=== PATIENT | female | born 1935 | race Caucasian/White ===

== ENCOUNTER 2022-12-29 10:31 | Emergency (ER) | payer BC, MEDICARE ==
[~2022-12-29] VITALS: Ht 165.1 cm; Wt 70.0 kg
[~2022-12-29 10:31] MED LIST: [UNRECOGNIZED DRUG - OTHER]
[2022-12-29 10:33] VITALS: TEMP 98; O2SAT 96
[2022-12-29 11:36] LABS: BASOPHILS % 0.8 % (0.0-2.0); EOSINOPHILS % 3.3 % (0.0-5.0); HEMATOCRIT. 30.9 % (36.0-48.0); HEMOGLOBIN. 10.5 g/dL (12.0-16.0); LYMPHOCYTES % 16.8 % (20.0-50.0); MEAN CORPUSCULAR HEMOGLOBIN 31.1 pg (28.0-32.0); MEAN CORPUSCULAR VOLUME 91.6 fL (81.0-99.0); MEAN PLATELET VOLUME 7.8 fl (7.4-10.4); NEUTROPHILS % 70.1 % (40.0-76.0); PLATELET 257 x1000/uL (130-400); RED BLOOD CELL COUNT 3.37 mill/uL (4.2-5.4); RED CELL DISTRIBUTION WIDTH 15.1 % (11.6-14.6); WHITE BLOOD COUNT 8.8 x1000/uL (4.5-11.0)
[2022-12-29 12:17] LABS: CHLORIDE 110 mEq/L (98-107); INDEX HEMOLYSI 3 (1-3); INDEX ICTERIC 1 (1-4); INDEX LIPEMIC 1 (1-3); POTASSIUM 3.8 mEq/L (3.5-5.1); SODIUM 137 mEq/L (136-145)
[2022-12-29 12:26] LABS: ALANINE AMINOTRANSFERASE 20 IU/L (13-61); ASPARTATE AMINOTRANSFERASE 23 IU/L (15-37); BILIRUBIN TOTAL 0.5 mg/dL (0.1-1.0); CARBON DIOXIDE 24 mEq/L (21-32); CREATININE 0.7 mg/dL (0.6-1.3); GLUCOSE 106 mg/dL (70-105); PROTEIN TOTAL 6.5 g/dL (6.0-8.3); TROPONIN I HIGH SENSITIVITY 14 ng/L (<54); UREA NITROGEN BLOOD 33 mg/dL (7-21)
[2022-12-29] MEDS ORDERED: SODIUM CHLORIDE 0.9% 1,000 ML IV ONE ×2 (12:30→13:45)
[2022-12-29 13:30] VITALS: BP 102/49; PULSE 68; RESP 17
== END 2022-12-29 14:24 | disposition home or self-care (01) ==
LOC: ER 10:31 → CANBEDREQ 14:00 → ER 14:24
DX: R55 Syncope and collapse (principal); E86.0 Dehydration
CPT/HCPCS: 99291; 96360; 70450; 80053; 85025; 84484; 36415; 71045; 93005; J7030